=== PATIENT | male | born 1950 ===

== ENCOUNTER 2024-01-19 08:24 | Day surgery (SDC) | payer MEDICARE ==
[~2024-01-19] VITALS: Ht 185.4 cm; Wt 97.7 kg
[2024-01-19] VITALS (20 sets, daily range): BP systolic 118–169; BP diastolic 71–102
[~2024-01-19 08:24] MED LIST: LISI20 PO; NS 500 ML IV SCH; propofoL 40 ML IV ONE
--- NOTE | 2024-01-19 08:58 | NUR ---
Patient up to Ambulate independently. Gait steady. History, Chart, Medications and Allergies reviewed before start of procedure. Pre-Op teaching done. Pt verbalizes understanding. Patient States Post-Procedure ride home has been arranged with [employer].
--- NOTE | 2024-01-19 08:58 | NUR ---
01/19/24 0858 Sylvia Kwan CONFIRMED AND REVIEWED H&P, MEDCICATIONS, ALLERGIES, MEDICAL HISTORY, RESPIRATORY HISTORY, VITAL SIGNS, 3-LEAD EKG, CONSENTS, AND PHYSICIAN ORDERS. PATIENT CONFIRMS NPO STATUS AND AGREES WITH SCHEDULED PROCEDURE. MONITOR INTACT WITH CONTINUOUS PULSE OXIMETRY, CAPNOGRAPHY, 3-LEAD EKG, INTERMITTENT BP. SUPPLEMENTAL O2 TO BE TITRATED THROUGHOUT PROCEDURE TO MAINTAIN O2 SATURATION ABOVE 90%. PATIENT DETERMINED TO BE ASA APPROPRIATE FOR PROPOFOL SEDATION PRIOR TO START OF PROCEDURE BY DR. JOLLY
--- NOTE | 2024-01-19 09:46 | NUR ---
PT TO DAY SURGERY STEP DOWN FROM COLONOSCOPY; BEDSIDE REPORT RECEIVED. PT IS AWAKE, ALERT AND ORIENTED; ABLE TO MOVE SELF IN BED. VSS. PT HAS NO COMPLAINTS AT THIS TIME.
--- NOTE | 2024-01-19 10:02 | NUR ---
PT DECLINES PO FLUIDS Discharge instructions reviewed with patient. Patient verbalizes understanding. Copy given to patient to take home. Patient States Post-Procedure ride home has been arranged.
--- NOTE | 2024-01-19 10:10 | NUR ---
Patient up to Ambulate independently. Gait steady. Up to void
--- NOTE | 2024-01-19 10:13 | NUR ---
Discharged via wheelchair to private car for ride home.
== END 2024-01-19 10:14 | disposition home or self-care (01) ==
LOC: ORSCMMR 08:24 → ORD 09:30 → ORSCMMR 09:30
PROVIDERS: Internal Medicine Gastroenterology
PROC: 0DBK8ZX Excision of Ascending Colon, Via Natural or Artificial Opening Endoscopic, Diagnostic (ICD-10-PCS; principal; 2024-01-19 09:30)
DX: Z12.11 Encounter for screening for malignant neoplasm of colon (principal); R19.5 Other fecal abnormalities; Z86.0100 Personal history of colon polyps, unspecified; D12.2 Benign neoplasm of ascending colon; I10 Essential (primary) hypertension; Z87.891 Personal history of nicotine dependence; Z79.899 Other long term (current) drug therapy
CPT/HCPCS: 88305; J2704; J7040

== ENCOUNTER 2024-08-31 22:57 | Emergency (ER) | payer MEDICARE ==
[~2024-08-31] VITALS: Ht 185.4 cm; Wt 99.8 kg
[~2024-08-31 22:57] MED LIST changes: -NS 500 ML IV SCH; -propofoL 40 ML IV ONE
[2024-09-01 00:52] LABS: Source, Urine Foley catheter
[2024-09-01 00:54] LABS: Bilirubin, Urine Neg (Neg); Glucose Qualitative, Urine 1+ (Neg); Ketones, Urine 1+ (Neg); Leukocyte Esterase, Urine Neg (Neg); Protein, Urine 1+ (Neg); Specific Gravity, Urine 1.010 (1.003-1.022); Urobilinogen, Urine NORM (Normal)
[2024-09-01 01:02] LABS: Color, Urine Yellow (P-Yellow)
[2024-09-01 01:03] LABS: White Blood Cells, Urine 0-2 /hpf (0-5)
== END 2024-09-01 01:35 | disposition home or self-care (01) ==
LOC: ER 22:57
PROVIDERS: Physician Assistant
DX: R33.9 Retention of urine, unspecified (principal); R10.30 Lower abdominal pain, unspecified; Z79.899 Other long term (current) drug therapy; Z85.9 Personal history of malignant neoplasm, unspecified
CPT/HCPCS: 51702; 51798; 81001; 99283